=== PATIENT | male | born 1975 ===

== ENCOUNTER 2020-01-13 22:47 | Emergency (ER) | payer SELFPAY ==
[~2020-01-13] VITALS: Ht 188 cm; Wt 90.7 kg
[2020-01-13 22:57] VITALS: Ht 188 cm; Wt 90.7 kg
[2020-01-13 23:35] LABS: BASOPHIL % 1.2 % (0-2); PLATELET COUNT 339 x10^3mcL (130-400); RED CELL DISTRIBUTION WIDTH 13.7 % (11.5-14.5)
[2020-01-13 23:41] LABS: CALCIUM 8.7 mg/dL (8.5-10.1); CARBON DIOXIDE 28.5 mmol/L (21-32); CHLORIDE SERUM 107 mmol/L (98-107); CREATININE SERUM 0.8 mg/dL (0.7-1.3); GFR1 > 60 mL/min; GLUCOSE SERUM 97 mg/dL (74-106); POTASSIUM SERUM 4.2 mmol/L (3.5-5.1); SODIUM SERUM 142 mmol/L (136-145)
[2020-01-13 23:45] LABS: ALKALINE PHOSPHATASE 68 U/L (46-116); ALT/SGPT 37 U/L (16-63); AST/SGOT 29 U/L (15-37); BILIRUBIN TOTAL 0.3 mg/dL (0.20-1.00); TOTAL PROTEIN, SERUM 6.5 g/dL (6.4-8.2)
[2020-01-13 23:46] LABS: ALBUMIN 3.2 g/dL (3.4-5.0)
[2020-01-14 06:33] VITALS: BP 119/68
== END 2020-01-14 06:33 | disposition home or self-care (01) ==
LOC: ED 22:47
PROVIDERS: Emergency Medicine
DX: F41.9 Anxiety disorder, unspecified (principal)
CPT/HCPCS: G0480; Q0092